=== PATIENT | female | born 1985 | race Two or more races ===

== ENCOUNTER 2017-04-29 12:46 | Emergency (ER) | payer SELFPAY ==
[~2017-04-29] VITALS: Ht 165.1 cm; Wt 65.8 kg
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
[2017-04-29] MEDS ORDERED: ACETAMINOPHEN ES 500 MG TABLET ONE (13:51)
[2017-04-29] MEDS ORDERED: IBUPROFEN 600 MG TABLET PO ONE (13:51)
[2017-04-29] MEDS: IBUPROFEN 600 MG TABLET PO ONE (14:00)
[2017-04-29] MEDS: ACETAMINOPHEN ES 500 MG TABLET PO ONE (14:01)
[2017-04-29 14:33] VITALS: BP 111/70
--- NOTE | 2017-04-29 14:33 | NUR ---
Patient discharged to home in stable condition. Written and verbal after care instructions given. Patient verbalizes understanding of instruction.
== END 2017-04-29 14:35 | disposition home or self-care (01) ==
LOC: ER 12:49
DX: S50.311A Abrasion of right elbow, initial encounter (principal); J45.909 Unspecified asthma, uncomplicated; V49.59XA Passenger injured in collision with other motor vehicles in traffic accident, initial encounter; Y93.89 Activity, other specified; Y92.413 State road as the place of occurrence of the external cause; Y99.8 Other external cause status
CPT/HCPCS: 72040-TC; 73070-TC; 73560-TC; A4606; Z7610